=== PATIENT | female | born 1960 | race Hispanic/Latino ===

== ENCOUNTER 2017-10-19 14:06 | Emergency (ER) | payer OTHER ==
[~2017-10-19] VITALS: Ht 149.9 cm; Wt 88.5 kg
[~2017-10-19 14:06] MED LIST: Z.0.METOPROLOL SUCC2
[2017-10-19] MEDS ORDERED: ONDANSETRON HCL INJ 2 MG/ML VIAL IV STA (16:26)
[2017-10-19] MEDS ORDERED: SODIUM CHLORIDE 0.9% 1000ML 1,000 ML IV SCH (16:30)
[2017-10-19] MEDS ORDERED: DIATRIZOATE MEGL/DIATRIZOA SOD 30 ML BTL PO ONE (16:34)
[2017-10-19 16:45] LABS: BASOPHILS % 0.5 % (0.0-1.0); EOSINOPHILS # (AUTO) 0.1 (0.0-0.4); EOSINOPHILS % 1.6 % (0.0-6.0); HEMATOCRIT 44.6 % (34.2-44.1); HEMOGLOBIN 14.5 g/dL (12.0-16.0); LYMPHOCYTES # (AUTO) 2.1 (1.0-3.2); LYMPHOCYTES % 25.4 % (18.0-39.1); MEAN CORPUSCULAR HEMOGLOBIN 27.4 pg (28-32); MEAN CORPUSCULAR HGB CONC 32.5 g/dL (31-35); MEAN CORPUSCULAR VOLUME 84.2 fL (81-99); MONOCYTES # (AUTO) 0.6 (0.2-0.8); MONOCYTES % 7.2 % (4.4-11.3); NEUTROPHILS # (AUTO) 5.4 (2.1-6.9); NEUTROPHILS % 65.1 % (38.7-80.0); PLATELET COUNT 233 x10e3/uL (140-360); RED CELL DISTRIBUTION WIDTH 12.8 % (11.7-14.4)
[2017-10-19] MEDS ORDERED: MORPHINE SULFATE 2 MG/ML SYR IV ONE (16:45)
[2017-10-19 16:48] LABS: BILIRUBIN,URINE NEGATIVE (NEGATIVE); CLARITY,URINE CLEAR (CLEAR); COLOR,URINE YELLOW (YELLOW); KETONES,URINE NEGATIVE (NEGATIVE); LEUKOCYTE ESTERASE ,URINE NEGATIVE (NEGATIVE); NITRITE,URINE NEGATIVE (NEGATIVE); PROTEIN,URINE DIPSTICK NEGATIVE (NEGATIVE); URINE UROBILINOGEN 0.2 mg/dL (0.2 - 1)
[2017-10-19 16:56] LABS: EPITHELIAL CELLS,URINE MODERATE /LPF; MUCUS,URINE MANY (RARE); WBC,URINE (MAN) 0-5 /HPF (0-5)
[2017-10-19 17:01] LABS: ALANINE AMINOTRANSFERASE 17 IU/L (0-55); ALBUMIN 4.1 g/dL (3.5-5.0); ALBUMIN/GLOBULIN RATIO 0.9 (0.8-2.0); ALKALINE PHOSPHATASE 130 IU/L (40-150); ANION GAP 14.8 mmol/L (8-16); BLOOD UREA NITROGEN 19 mg/dL (7-26); BUN/CREATININE RATIO 22 (6-25); CALCIUM 9.4 mg/dL (8.4-10.2); CARBON DIOXIDE 26 mmol/L (22-29); CHLORIDE 105 mmol/L (98-107); CREATININE, SERUM 0.85 mg/dL (0.57-1.11); EST GLOMERULAR FILTRATION RATE > 60 ML/MIN (60-); GLUCOSE 112 mg/dL (74-118); POTASSIUM 3.8 mmol/L (3.5-5.1); SODIUM 142 mmol/L (136-145)
--- NOTE | 2017-10-19 18:35 | Diagnostic Imaging Report ---
EXAM: CT Abdomen and Pelvis WITH contrast INDICATION: \S\LLQ pain, evaluate for diverticular disease vs colitis \[id number] \S\1757 COMPARISON: None. TECHNIQUE: Abdomen and pelvis were scanned utilizing a multidetector helical scanner from the lung base to the pubic symphysis after administration of IV contrast. Coronal and sagittal reformations were obtained. Routine protocol was performed. Scan was performed when during portal venous phase. IV CONTRAST: 100 mL of Isovue-370 ORAL CONTRAST: Gastroview COMPLICATIONS: None RADIATION DOSE: Total DLP: 736.34 mGy*cm Estimated effective dose: (DLP x 0.015 x size factor) mSv CTDIvol has been reviewed. It is below the limits set by the Radiation Protocol Committee (RPC). FINDINGS: LINES and TUBES: None. LOWER THORAX: Unremarkable HEPATOBILIARY: No focal hepatic lesions. No biliary ductal dilation. GALLBLADDER: No radio-opaque stones or sludge. No wall thickening. SPLEEN: No splenomegaly. PANCREAS: No focal masses or ductal dilatation. ADRENALS: No adrenal nodules KIDNEYS/URETERS: Kidneys enhance symmetrically. No hydronephrosis. No renal mass. 1.3 cm left mid to inferior pole exophytic hypodensity with internal attenuation greater than simple fluid, may represent a hemorrhagic/proteinaceous cyst. Additional left renal subcentimeter hypodensities are too small to characterize. No stones. GI TRACT: No abnormal distention, wall thickening, or evidence of bowel obstruction. Colonic diverticulosis without evidence of diverticulitis. Appendix is normal. PELVIC ORGANS/BLADDER: Hysterectomy. Approximately 2.6 cm left ovarian cyst (series 2, image 74). Bladder is unremarkable. LYMPH NODES: No lymphadenopathy. VESSELS: Unremarkable. PERITONEUM / RETROPERITONEUM: No free air or fluid. BONES: T10 vertebral body hemangioma. There are also small lucencies within L1 vertebral body, also probably small hemangiomas. SOFT TISSUES: Small fat-containing umbilical hernia. There is also abdominal wall eventration. Large hiatal hernia. IMPRESSION: 1. Colonic diverticulosis without evidence of diverticulitis. 2. Large hiatal hernia. 3. Exophytic 1.3 cm left renal midpole lesion is probably a hemorrhagic/proteinaceous cyst. Recommend correlation with nonurgent renal ultrasound. Signed by: Dr. Jerman López MD on 10/19/2017 6:32 PM
[2017-10-19 19:45] VITALS: BP 179/98
[2017-10-19] MEDS ORDERED: IOPAMIDOL 370 MG/ML 200 ML INFUS..BTL INJ ONE (20:13)
[2017-10-19] MEDS ORDERED: SODIUM CHLORIDE 0.9% 50ML 50 ML ONE (20:13)
== END 2017-10-19 19:50 | disposition home or self-care (01) ==
LOC: ER 14:06
DX: R10.32 Left lower quadrant pain (principal); I10 Essential (primary) hypertension
CPT/HCPCS: 36415; 74177; 80053; 81001; 83605; 85025; 87086; 99284; J7030; Q9967; J2270

== ENCOUNTER 2019-11-07 11:29 | Emergency (ER) | payer OTHER ==
[~2019-11-07] VITALS: Ht 149.9 cm; Wt 88.5 kg
--- OUTSIDE RECORDS SUMMARY | 2019-11-07 11:31 | XMS REPORT ---
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 Allergies, Adverse Reactions, Alerts This patient has no known allergies or adverse reactions. Medications This patient has no known medications. Results Test Description Test Time Test Comments Text Results Atomic Results Result Comments CT ABDOMEN/PELVIS W [place] [address] Patient Name: MARITZA RUIZ MR #: [id number] : 1960 Age/Sex: 57/F Req #: [id number] Adm Physician: Ordered by: ERIK WEISS MD Report #: [id number] Location: ER Room/Bed: Procedure: [id number] CT/CT ABDOMEN/PELVIS W Exam Date: 10/19/17 Exam Time: 1757 REPORT STATUS: Signed EXAM: CT Abdomen and Pelvis WITH contrast INDICATION: COMPARISON: None. TECHNIQUE: Abdomen and pelvis were scanned utilizing a multidetector helical scanner from the lung base to the pubic symphysis after administration of IV contrast. Coronal and sagittal reformations were obtained. Routine protocol was performed. Scan was performed when during portal venous phase. IV CONTRAST: 100 mL of Isovue-370 ORAL CONTRAST: Gastroview COMPLICATIONS: None RADIATION DOSE: Total DLP: 736.34 mGy*cm Estimated effective dose: (DLP x 0.015 x size factor) mSv CTDIvol has been reviewed. It is below the limits set by the Radiation Protocol Committee (RPC). FINDINGS: LINES and TUBES: None. LOWER THORAX: Unremarkable HEPATOBILIARY: No focal hepatic lesions. No biliary ductal dilation. GALLBLADDER: No radio-opaque stones or sludge. No wall thickening. SPLEEN: No splenomegaly. PANCREAS: No focal masses or ductal dilatation. ADRENALS: No adrenal nodules KIDNEYS/URETERS: Kidneys enhance symmetrically. No hydronephrosis. No renal mass. 1.3 cm left mid to inferior pole exophytic hypodensity with internal attenuation greater than simple fluid, may represent a hemorrhagic/proteinaceous cyst. Additional left renal subcentimeter hypodensities are too small to characterize. No stones. GI TRACT: No abnormal distention, wall thickening, or evidence of bowel obstruction. Colonic diverticulosis without evidence of diverticulitis. Appendix is normal. PELVIC ORGANS/BLADDER: Hysterectomy. Approximately 2.6 cm left ovarian cyst (series 2, image 74). Bladder is unremarkable. LYMPH NODES: No lymphadenopathy. VESSELS: Unremarkable. PERITONEUM / RETROPERITONEUM: No free air or fluid. BONES: T10 vertebral body hemangioma. There are also small lucencies within L1 vertebral body, also probably small hemangiomas. SOFT TISSUES: Small fat-containing umbilical hernia. There is also abdominal wall eventration. Large hiatal hernia. IMPRESSION: 1. Colonic diverticulosis without evidence of diverticulitis. 2. Large hiatal hernia. 3. Exophytic 1.3 cm left renal midpole lesion is probably a hemorrhagic/proteinaceous cyst. Recommend correlation with nonurgent renal ultrasound. Signed by: Dr. Jerman López MD on 10/19/2017 6:32 PM Dictated By: JERMAN LÓPEZ MD 31 Transcribed By: MARYAM on 10/19/171831 COPY TO: ERIK WEISS MD
[2019-11-07] MEDS ORDERED: SODIUM CHLORIDE 0.9% 1000ML 1,000 ML IV STA (12:16)
[2019-11-07 12:26] LABS: BASOPHILS % 0.5 % (0.0-1.0); EOSINOPHILS # (AUTO) 0.1 (0.0-0.4); EOSINOPHILS % 1.2 % (0.0-6.0); HEMATOCRIT 45.1 % (34.2-44.1); HEMOGLOBIN 14.5 g/dL (12.0-16.0); LYMPHOCYTES # (AUTO) 1.6 (1.0-3.2); LYMPHOCYTES % 24.8 % (18.0-39.1); MEAN CORPUSCULAR HEMOGLOBIN 26.6 pg (28-32); MEAN CORPUSCULAR HGB CONC 32.2 g/dL (31-35); MEAN CORPUSCULAR VOLUME 82.8 fL (81-99); MONOCYTES # (AUTO) 0.5 (0.2-0.8); MONOCYTES % 7.3 % (4.4-11.3); NEUTROPHILS # (AUTO) 4.4 (2.1-6.9); PLATELET COUNT 249 x10e3/uL (140-360); RED BLOOD COUNT 5.45 x10e6/uL (3.6-5.1); RED CELL DISTRIBUTION WIDTH 13.2 % (11.7-14.4)
[2019-11-07 12:33] LABS: CLARITY,URINE CLEAR (CLEAR); COLOR,URINE YELLOW (YELLOW); KETONES,URINE NEGATIVE (NEGATIVE); LEUKOCYTE ESTERASE ,URINE NEGATIVE (NEGATIVE); NITRITE,URINE NEGATIVE (NEGATIVE); PROTEIN,URINE DIPSTICK NEGATIVE (NEGATIVE)
[2019-11-07 12:34] LABS: AMPHETAMINES SCREEN,URINE NEGATIVE (NEGATIVE); BENZODIAZEPINES SCREEN,URINE NEGATIVE (NEGATIVE); BILIRUBIN,URINE NEGATIVE (NEGATIVE); PHENCYCLIDINE SCREEN,URINE NEGATIVE (NEGATIVE); URINE UROBILINOGEN 0.2 mg/dL (0.2 - 1)
[2019-11-07 12:43] LABS: RBC,URINE 0-5 /HPF (0-5)
[2019-11-07 12:44] LABS: BACTERIA,URINE RARE /HPF; EPITHELIAL CELLS,URINE RARE /LPF
[2019-11-07 12:56] LABS: ALANINE AMINOTRANSFERASE 15 IU/L (0-55); ALBUMIN 4.1 g/dL (3.5-5.0); ALBUMIN/GLOBULIN RATIO 1.1 (0.8-2.0); ALKALINE PHOSPHATASE 109 IU/L (40-150); ANION GAP 14.9 mmol/L (8-16); BLOOD UREA NITROGEN 15 mg/dL (7-26); BUN/CREATININE RATIO 18 (6-25); CALCIUM 9.3 mg/dL (8.4-10.2); CARBON DIOXIDE 26 mmol/L (22-29); CHLORIDE 105 mmol/L (98-107); CREATINE KINASE 41 IU/L (29-168); CREATININE, SERUM 0.82 mg/dL (0.57-1.11); EST GLOMERULAR FILTRATION RATE > 60 ML/MIN (60-); GLUCOSE 97 mg/dL (74-118); POTASSIUM 3.9 mmol/L (3.5-5.1); SODIUM 142 mmol/L (136-145)
--- NOTE | 2019-11-07 12:56 | Diagnostic Imaging Report ---
EXAM: CHEST 2 VIEWS DATE: 11/07/2019 12:02 PM INDICATION: Syncope COMPARISON: CT abdomen/pelvis from 10/19/2017 FINDINGS: The trachea is midline. The lungs are symmetrically expanded without evidence for large focal consolidation, pneumothorax, or significant pleural effusion. There is a retrocardiac air-fluid level compatible with the known large hiatal hernia better evaluated on the prior CT abdomen/pelvis examination. The cardiomediastinal silhouette and pulmonary vasculature are within normal limits. No acute osseous abnormality is identified. The surrounding soft tissues are unremarkable. IMPRESSION: No acute cardiopulmonary process identified. Hiatal hernia. Signed by: Dr. Giancarlo Ashley MD on 11/07/2019 12:54 PM
--- NOTE | 2019-11-07 12:59 | Diagnostic Imaging Report ---
Exam: Head CT without contrast History: Syncope Comparison studies: None. Prior head CT of 07/28/2011 is unavailable on the PACS for comparison at the time of dictation. Technique: Axial images were obtained from the skull base to the vertex. Coronal and sagittal images reconstructed from the axial data. Dose modulation, iterative reconstruction, and/or weight based adjustment of the mA/kV was utilized to reduce the radiation dose to as low as reasonably achievable. Radiation dose: Total DLP: 832.18 mGy*cm. Estimated effective dose: DLP x 0.015 Intravenous contrast: None Findings: Scalp: No abnormalities. Bones: No fractures, blastic or lytic lesions. Brain sulci: Appropriate for age. Ventricles: Normal in size and configuration. No hydrocephalus. Extra-axial spaces: No masses, no fluid collection. Parenchyma: No abnormal densities. No masses, hemorrhage, acute or chronic vascular insults. Sellar/suprasellar region: No abnormalities. Craniocervical junction: Patent foramen magnum. No Chiari one malformation. Included paranasal sinuses: Clear. Middle ear mastoid cavities: There bilaterally. Pneumatized left petrous apex, a normal anatomical variant. IMPRESSION: No intracranial abnormalities. Signed by: Dr. Filiberto Tucker M.D. on 11/07/2019 12:56 PM
== END 2019-11-07 14:33 | disposition home or self-care (01) ==
LOC: ER 11:29
DX: R55 Syncope and collapse (principal)
CPT/HCPCS: 36415; 70450; 71046; 80053; 80307; 81001; 82550; 82553; 84484; 85025; 93005; 99284

== ENCOUNTER 2019-12-29 16:09 | Inpatient (IN) | payer OTHER ==
[~2019-12-29] VITALS: Ht 149.9 cm; Wt 86.3 kg
[~2019-12-29 16:09] MED LIST changes: -Z.0.METOPROLOL SUCC2; +Z.0.METOPROLOL SUCC2 PO
[2019-12-29] MEDS ORDERED: ACETAMINOPHEN 325 MG TAB PO NR (16:15)
[2019-12-29] MEDS ORDERED: ASPIRIN 81 MG CHEW TAB PO ONE ×2 (16:15→18:00)
[2019-12-29 16:43] LABS: BASOPHILS % 0.3 % (0.0-1.0); EOSINOPHILS # (AUTO) 0.1 (0.0-0.4); EOSINOPHILS % 0.4 % (0.0-6.0); HEMATOCRIT 40.3 % (34.2-44.1); HEMOGLOBIN 13.2 g/dL (12.0-16.0); LYMPHOCYTES # (AUTO) 1.4 (1.0-3.2); LYMPHOCYTES % 11.5 % (18.0-39.1); MEAN CORPUSCULAR HEMOGLOBIN 27.1 pg (28-32); MEAN CORPUSCULAR HGB CONC 32.8 g/dL (31-35); MEAN CORPUSCULAR VOLUME 82.8 fL (81-99); MONOCYTES # (AUTO) 1.1 (0.2-0.8); MONOCYTES % 8.7 % (4.4-11.3); NEUTROPHILS # (AUTO) 9.5 (2.1-6.9); NEUTROPHILS % 78.7 % (38.7-80.0); PLATELET COUNT 269 x10e3/uL (140-360); RED BLOOD COUNT 4.87 x10e6/uL (3.6-5.1); RED CELL DISTRIBUTION WIDTH 12.3 % (11.7-14.4)
[2019-12-29] MEDS: PIPER-TAZ 3.375 GM 50 ML IV SCH (16:45)
[2019-12-29 16:51] LABS: CLARITY,URINE SL CLOUDY (CLEAR); COLOR,URINE YELLOW (YELLOW); LEUKOCYTE ESTERASE ,URINE NEGATIVE (NEGATIVE); NITRITE,URINE NEGATIVE (NEGATIVE); PROTEIN,URINE DIPSTICK NEGATIVE (NEGATIVE)
[2019-12-29 16:55] LABS: KETONES,URINE NEGATIVE (NEGATIVE)
[2019-12-29 16:56] LABS: BILIRUBIN,URINE NEGATIVE (NEGATIVE); URINE UROBILINOGEN 1 mg/dL (0.2 - 1)
[2019-12-29 17:01] LABS: BACTERIA,URINE FEW /HPF
[2019-12-29 17:02] LABS: EPITHELIAL CELLS,URINE FEW /LPF
[2019-12-29 17:06] LABS: ALBUMIN 3.2 g/dL (3.5-5.0); ALBUMIN/GLOBULIN RATIO 0.7 (0.8-2.0); ANION GAP 11.8 mmol/L (8-16); CALCIUM 9.2 mg/dL (8.4-10.2); CREATININE, SERUM 1.06 mg/dL (0.57-1.11); POTASSIUM 3.8 mmol/L (3.5-5.1)
[2019-12-29 17:10] LABS: INFLUENZAE A&B ANTIGEN (RAPID) NEGATIVE (NEGATIVE); STREPTOCOCCUS GRP A ANTIGEN NEGATIVE (NEGATIVE)
--- NOTE | 2019-12-29 17:34 | Diagnostic Imaging Report ---
EXAMINATION: CHEST SINGLE (PORTABLE) INDICATION: Fever, shortness of breath. COMPARISON: Chest radiograph 11/07/2019. FINDINGS: TUBES and LINES: None. LUNGS: Lungs are well inflated. Patchy left retrocardiac opacity. No evidence of pulmonary edema. PLEURA: No pleural effusion or pneumothorax. HEART AND MEDIASTINUM: The cardiomediastinal silhouette is unchanged. Hiatal hernia. BONES AND SOFT TISSUES: No acute osseous lesion. Soft tissues are unremarkable. UPPER ABDOMEN: No free air under the diaphragm. IMPRESSION: Patchy left retrocardiac opacity, which may represent atelectasis or infection in the appropriate clinical setting. Signed by: Dr. Minesh Cohen MD on 12/29/2019 5:30 PM
--- NOTE | 2019-12-29 17:45 | NUR ---
Spoke with lab regarding COVID testing for patient. Was told that test kit is in lab directors office and that they would have to call security in order to unlock door. Will get test from lab once available.
[2019-12-29] MEDS ORDERED: MORPHINE SULFATE 2 MG/ML SYR 1ML IV PRN (18:00)
[2019-12-29] MEDS: ONDANSETRON HCL INJ 2MG/ML 2ML 2 MG/ML VIAL IV PRN (18:10)
--- NOTE | 2019-12-29 18:15 | NUR ---
specimen obtained via nasal passage for COVID-19 testing.
[2019-12-29] MEDS: MORPHINE SULFATE INJ 4 MG/ML INJ 1ML IV PRN (18:48)
--- NOTE | 2019-12-29 19:01 | NUR ---
report given to Miguelito ROMO
--- NOTE | 2019-12-29 21:00 | NUR ---
pt c/o pain to llq p eating chicken nuggets. pt reports trace blood in diarrhea. pt states that having pain x 1 week and unable to tolerate food at home. pt states that did not tell md or triage nurse about abdominal pain. dr wayne called.
[2019-12-29] MEDS ORDERED: DIATRIZOATE MEGL/DIATRIZOA SOD 30 ML BTL PO ONE (21:25)
[2019-12-29] MEDS ORDERED: SODIUM CHLORIDE 0.9% 1000ML 500 ML IV ONE (21:30)
[2019-12-29] MEDS ORDERED: HYDROCODONE/APAP 5MG-325MG TAB PO PRN (21:30)
[2019-12-29] MEDS ORDERED: SODIUM CHLORIDE 0.9% 500ML 500 ML ONE (21:35)
[2019-12-29] MEDS: SODIUM CHLORIDE 0.9% 1000ML 1,000 ML IV SCH (21:45)
[2019-12-29] MEDS: ACETAMINOPHEN 325 MG TAB PO PRN (23:45)
--- NOTE | 2019-12-29 23:53 | Diagnostic Imaging Report ---
EXAM: CT Abdomen and Pelvis WITH contrast INDICATION: Diarrhea for one week , left lower quadrant pain COMPARISON: None. TECHNIQUE: Abdomen and pelvis were scanned utilizing a multidetector helical scanner from the lung base to the pubic symphysis after administration of IV contrast. Coronal and sagittal reformations were obtained. Routine protocol was performed. Scan was performed when during portal venous phase. IV CONTRAST: 100 mL of Isovue 370 ORAL CONTRAST: Gastroview COMPLICATIONS: None RADIATION DOSE: Total DLP: 745 mGy*cm Estimated effective dose: (DLP x 0.015 x size factor) mSv CTDIvol has been reviewed. It is below the limits set by the Radiation Protocol Committee (RPC). Dose modulation, iterative reconstruction, and/or weight based adjustment of the mA/kV was utilized to reduce the radiation dose to as low as reasonably achievable. FINDINGS: LINES and TUBES: None. LOWER THORAX: Unremarkable HEPATOBILIARY: No focal hepatic lesions. No biliary ductal dilation. GALLBLADDER: No radio-opaque stones or sludge. No wall thickening. SPLEEN: No splenomegaly. PANCREAS: No focal masses or ductal dilatation. ADRENALS: No adrenal nodules KIDNEYS/URETERS: Kidneys enhance symmetrically. No hydronephrosis. No solid mass lesions. A 1.4 cm simple exophytic left renal cyst. No stones. GI TRACT: Large sliding gastric mari hernia, the entire stomach is herniated into the lower posterior mediastinum. Sigmoid wall thickening and perisigmoid fat stranding. A few small defined hypodensities within the inflamed sigmoid colon wall, largest measures 2.1 cm. Extensive colonic diverticulosis, worst in the sigmoid colon. Ingested contrast traversed the small bowel with contrast in the colon. No abnormal distention or evidence of bowel obstruction. Appendix is normal. PELVIC ORGANS/BLADDER: A 2 cm fluid dense focus in the left ovary with mild surrounding inflammatory changes. Hysterectomy. Normal bladder and right adnexa. LYMPH NODES: No lymphadenopathy. VESSELS: Unremarkable. PERITONEUM / RETROPERITONEUM: Trace fluid in the pelvis. No free air. BONES: T10 vertebral body hemangioma. Degenerative changes in the spine. . SOFT TISSUES: Rectus status stasis with fat-containing ventral hernia. IMPRESSION: 1. Acute sigmoid diverticulitis with small intramural abscesses, largest measures 2.1 cm. Also, a 2 cm focus of fluid in the left ovary is likely a physiologic follicle although there is inflammatory changes around the ovary contiguous with the perisigmoid inflammation. Recommend pelvic ultrasound for further evaluation. 2. Large sliding gastric mari hernia, the entire stomach is herniated into the lower posterior mediastinum. Signed by: Andrew Bro DO on 12/29/2019 11:50 PM
[2019-12-30] VITALS (11 sets, daily range): BP systolic 108–137; BP diastolic 50–78
--- NOTE | 2019-12-30 00:15 | NUR ---
ct abd report called to dr wayne. new orders rc'd.
[2019-12-30] MEDS: PIPER-TAZ 3.375 GM 50 ML IV SCH ×4 (00:30→17:34)
[2019-12-30] MEDS ORDERED: SODIUM CHLORIDE 0.9% 50ML 50 ML ONE (01:00)
--- NOTE | 2019-12-30 01:00 | NUR ---
Patient arrived to the floor as a new admit from ED with diagnosis of Pneumonia and chest pain. Pt alert and oriented x3. Ambulatory in room prn. On IVF (NS at 75ml/hr), tele monitor and scheduled IV antibiotic treatment. Pt denies any discomfort at this time. Pt educated to call for assistance prn. Call zheng within reach. Will monitor pt closely.
[2019-12-30] MEDS ORDERED: IOPAMIDOL 370 MG/ML 200 ML INFUS..BTL INJ ONE (01:01)
[2019-12-30] MEDS ORDERED: SEROQUEL25 MG PO (02:39)
[2019-12-30] MEDS: MORPHINE SULFATE INJ 4 MG/ML INJ 1ML IV PRN ×3 (04:15→19:24)
[2019-12-30] MEDS: ONDANSETRON HCL INJ 2MG/ML 2ML 2 MG/ML VIAL IV PRN (04:15)
--- NOTE | 2019-12-30 06:14 | NUR ---
Consult to Dr. Weber called and answered by Dr. Patino.
--- NOTE | 2019-12-30 06:16 | NUR ---
Consult called for Dr. Salazar spoke with answering service
--- NOTE | 2019-12-30 07:00 | NUR ---
BEDSIDE SHIFT REPORT FROM FASHION CONSULTANT SALES NURSE. PT DENIES NEEDS AT THIS TIME.
--- NOTE | 2019-12-30 08:33 | Consultation ---
DATE OF CONSULTATION: 12/30/2019 HISTORY OF PRESENT ILLNESS: The patient is a 59-year-old female presents with complaints of lower abdominal pain. She says she has been having pain for 10 days and she thought it would get better, but it did not get better. She says pain is worse when she urinates. She has not had similar pains in the past. She came to the emergency room, was evaluated CT scan of the abdomen and pelvis. This revealed a large hiatal hernia, but also sigmoid diverticulitis with possibly pericolonic abscesses. The patient has not had any fever and she has been having bowel movements, although she says they are loose. PAST MEDICAL HISTORY: Significant for hypertension for which she takes metoprolol, also the only other medication is Seroquel. PAST SURGICAL HISTORY: Previous surgery was hysterectomy. ALLERGIES: SHE HAS NO KNOWN ALLERGIES. FAMILY HISTORY: Noncontributory. SOCIAL HISTORY: The patient does not smoke cigarettes or drink alcohol. REVIEW OF SYSTEMS: As stated above, otherwise was negative. She has not had any fever or weight loss. PHYSICAL EXAMINATION: GENERAL: The patient is awake and alert. VITAL SIGNS: Low-grade fever, this time with temperature 101.3, yesterday, heart rate is in the 90s. HEENT: Sclerae is nonicteric. NECK: Supple. No masses. LUNGS: Equal breath sounds, are clear bilaterally. CARDIAC: Regular rate and rhythm with no murmur. ABDOMEN: Tender in the lower abdomen with localized signs of peritonitis. There is no mass. No organomegaly. EXTREMITIES: Have no edema. Pulses are palpable. NEUROLOGIC: Intact. LABORATORY TESTS: White blood cell count 70079, hemoglobin and hematocrit are normal. Chemistries were essentially normal. ASSESSMENT: A 59-year-old female with acute sigmoid diverticulitis. She has fairly extensive disease on the CT scan, but so localized. At this point recommend continuing the patient on IV antibiotics, IV fluids. N.p.o. for now. Hopefully, she will resolve without requiring surgery, however, if her symptoms persist or worsen, then she may require surgical intervention. This was explained to the patient. Thank you for asking me to see Ms. Jackson. MD SANTANA Muhammad/RITU /[id number]
[2019-12-30] MEDS: METOPROLOL SUCCINATE 25 MG TAB XL PO SCH (08:54)
[2019-12-30] MEDS: ASPIRIN 81 MG ENTERIC COATED PO SCH (08:54)
[2019-12-30] MEDS: SODIUM CHLORIDE 0.9% 1000ML 1,000 ML IV SCH ×2 (10:50→14:58)
[2019-12-30 12:55] LABS: BASOPHILS % 0.4 % (0.0-1.0); EOSINOPHILS # (AUTO) 0.1 (0.0-0.4); EOSINOPHILS % 0.9 % (0.0-6.0); HEMATOCRIT 36.3 % (34.2-44.1); HEMOGLOBIN 11.7 g/dL (12.0-16.0); LYMPHOCYTES # (AUTO) 1.2 (1.0-3.2); MEAN CORPUSCULAR HEMOGLOBIN 27.2 pg (28-32); MEAN CORPUSCULAR HGB CONC 32.2 g/dL (31-35); MEAN CORPUSCULAR VOLUME 84.4 fL (81-99); MONOCYTES # (AUTO) 0.9 (0.2-0.8); MONOCYTES % 8.3 % (4.4-11.3); NEUTROPHILS # (AUTO) 8.5 (2.1-6.9); NEUTROPHILS % 79.1 % (38.7-80.0); PLATELET COUNT 196 x10e3/uL (140-360); RED CELL DISTRIBUTION WIDTH 12.6 % (11.7-14.4)
[2019-12-30 13:19] LABS: CREATINE KINASE MB 1.1 ng/mL (0-5.0)
[2019-12-30 13:40] LABS: ALANINE AMINOTRANSFERASE 23 IU/L (0-55); ALBUMIN 2.8 g/dL (3.5-5.0); ALBUMIN/GLOBULIN RATIO 0.7 (0.8-2.0); ALKALINE PHOSPHATASE 118 IU/L (40-150); ANION GAP 11.3 mmol/L (8-16); BLOOD UREA NITROGEN 12 mg/dL (7-26); BUN/CREATININE RATIO 14 (6-25); CALCIUM 8.7 mg/dL (8.4-10.2); CARBON DIOXIDE 27 mmol/L (22-29); CHLORIDE 107 mmol/L (98-107); CREATININE, SERUM 0.83 mg/dL (0.57-1.11); EST GLOMERULAR FILTRATION RATE > 60 ML/MIN (60-); GLUCOSE 86 mg/dL (74-118); POTASSIUM 4.3 mmol/L (3.5-5.1); SODIUM 141 mmol/L (136-145)
[2019-12-30] MEDS ORDERED: BENZONATATE 100 MG CAP PO PRN (14:30)
--- NOTE | 2019-12-30 15:14 | Consultation ---
DATE OF CONSULTATION: SUBJECTIVE: The patient has fever, chills, UTI. This patient, who is a 59-year-old female, comes with abdominal pain on the left lower quadrant for a week, but it has been getting progressively worse over the last couple of days. There was some urgency and frequency. The patient does have history of hypertension, on metoprolol. The patient comes in with abdominal pain. There is no nausea or no vomiting. PAST SURGICAL HISTORY: Hysterectomy. PHYSICAL EXAMINATION: GENERAL: She is currently alert, oriented, in no acute distress. VITALS: Stable, currently afebrile. HEENT: She is not icteric. NECK: Supple. CHEST: Clear. ABDOMEN: Soft. LABORATORY STUDIES: When she first came, she had a white count of 12.09, came down to 10, hemoglobin 11. Her sodium 141, potassium 4.3 with creatinine 0.6. She was checked for COVID-19 and influenza A and B, all came back negative. She had abdominal CAT scan, which was acute diverticulitis with small abscess. IMPRESSION: Intraabdominal abscess, diverticulitis, currently on Zosyn. Continue IV antibiotic, n.p.o., reassess in the morning. Surgery was consulted. Other medical problem as above. We will follow with you. MD KOBE Rose/RITU /[id number]
[2019-12-30] MEDS: ENOXAPARIN SOD INJ 40 MG/0.4 ML SYR SC SCH (17:34)
[2019-12-30 18:10] LABS: CHOL/HDL RATIO 3.2 (3.0-3.6)
--- NOTE | 2019-12-30 18:25 | Consultation ---
DATE OF CONSULTATION: 12/30/2019 Cardiology consultation. REASON FOR CONSULTATION: Chest pain. HISTORY OF PRESENT ILLNESS: This is a 59-year-old woman with history of hypertension, who presents with abdominal pain and chest pain. The patient reports she began feeling poorly for the last week and half. She describes abdominal pain over this period time with inability to tolerate p.o. intake. She denied any nausea or vomiting. Yesterday, she developed fever and chills as well as stabbing chest pain 5/10 in severity, associated with shortness of breath. The pain did not radiate and lasted approximately an hour. Due to her symptoms, she presented to the ER for further evaluation. Imaging in the ER revealed acute sigmoid diverticulitis with small intramural abscesses, largest measuring 2.1 cm. Also, a 2 cm focus of fluid in the left ovary, likely a physiologic follicle, there is inflammatory changes around the ovary, contiguous with the esperanza-sigmoid inflammation. Recommend pelvic ultrasound for further evaluation. Large sliding gastric hiatal hernia. The entire stomach is herniated into the lower posterior mediastinum. Due to these findings, the patient was admitted for further evaluation. REVIEW OF SYSTEMS: Negative except as per HPI. PAST MEDICAL HISTORY: Hypertension. PAST SURGICAL HISTORY: Hysterectomy and section. ALLERGIES: PLEASE SEE EMR. MEDICATIONS: Please see medication list. SOCIAL HISTORY: Denies tobacco, alcohol, or illicit drugs. FAMILY HISTORY: Denies. PHYSICAL EXAMINATION: VITAL SIGNS: Temperature 100.5, pulse 85, respiratory rate 16, blood pressure 108/50, oxygen saturation 94% on room air. GENERAL: Well-developed and well-nourished woman, in no acute distress. HEENT: Normocephalic and atraumatic. Pupils equal. No scleral icterus. NECK: Supple, no thyroid or cervical lymphadenopathy. No carotid bruits. LUNGS: Clear to auscultation bilaterally. No wheezes or crackles. HEART: Normal rate, regular rhythm. No murmur. Normal S1, S2. ABDOMEN: Soft, mildly tender to palpation. Nondistended. EXTREMITIES: No edema. NEUROLOGIC: Nonfocal exam. LABORATORY DATA: WBC 10.73, hemoglobin 11.7, hematocrit 36.3, platelets 196. Sodium 141, potassium 4.3, chloride 107, CO2 of 27, BUN 12, creatinine 0.83. EKG, normal sinus rhythm and normal ECG. IMPRESSION: 1. Chest pain. 2. Acute diverticulitis with intraabdominal abscess. 3. Hypertension. RECOMMENDATIONS: No evidence of myocardial infarction on serial cardiac biomarkers. Echocardiogram demonstrated preserved LVEF. Given patient's diverticulitis, I recommend medical management at this time including aspirin. Check fasting lipid panel. Continue current cardiac medications otherwise. Recommend ischemic evaluation as an outpatient once diverticulitis has resolved. Note, surgery consultation. If the patient requires surgical intervention, we will proceed with chemical stress test prior. Thank you for this consult. We will continue to follow. Leigh Ann Wolfe MD ABS/MODL /[id number]
--- NOTE | 2019-12-30 19:25 | History and Physical ---
CHIEF COMPLAINT: Abdominal pain, left lower quadrant and fever. HISTORY OF PRESENT ILLNESS: A 59-year-old female seems to have a history of diverticulosis in the past, was seen by GI specialist several years ago for colonoscopy, history of hypertension, present to the ED with complaints of left lower quadrant abdominal pain and fever ongoing for the last 7 to 10 days. The patient reports she was having episodic pain on and off and has been at home since that the abdominal pain occurred. Denies any myalgias, cough, congestion. Had some episodic fever that she reports ongoing for the last 10 days. She also reports decreased oral intake. No nausea, no vomiting. Endorses some diarrhea. The patient initially thought that she was improving up until yesterday when she ate some lunch and noticed to have severe abdominal pain in the left lower quadrant and came into the ED for further evaluation. Yesterday, she also described having some chest pain and this was what prompted her to come to the hospital. She reports it was more substernal in nature, does not radiate to the left shoulder or arm. Vital signs stable during my evaluation. REVIEW OF SYSTEMS: 1. Positive substernal chest pain. 2. Left lower quadrant abdominal pain, decreased oral intake. The rest of 14-point review of systems are reviewed with the patient and are negative. ALLERGIES: NO KNOWN DRUG ALLERGIES. MEDICATIONS: Metoprolol succinate 25 mg daily. PAST MEDICAL HISTORY: As mentioned, history of diverticulosis, moderate obesity. PAST SURGICAL HISTORY: Colonoscopy back in 2015 for underlying diverticulosis. FAMILY HISTORY: Hypertension and diabetes. SOCIAL HISTORY: No drugs, no alcohol. Does not smoke. . PHYSICAL EXAMINATION: VITAL SIGNS: Temperature was 100.5 recorded, T-max 101.3, pulse 85, respiratory rate 16, blood pressure is 100/54, pulse ox 94% on room air. GENERAL: Not in acute distress. Alert and oriented x3. Cooperative on examination. HEENT: Head; normocephalic, atraumatic. Eyes; pupils are equal, round and reactive to light bilaterally. Extraocular movements intact bilaterally. NECK: Supple. Good range of motion. Throat, no evidence of erythema or exudates in the posterior pharynx. Has poor dentition. PULMONARY: Clear to auscultation bilaterally. No wheezing, rales, or rhonchi. No crackles appreciated. CARDIOVASCULAR: Positive S1 and S2. No murmurs, rubs, or gallops appreciated. ABDOMEN: Tenderness to palpation in left lower quadrant noted. No rebound. Bowel sounds present. MUSCULOSKELETAL: Strength is 5/5 throughout. No evidence of any muscle deficits on examination. No weakness appreciated. NEUROLOGIC: Cranial nerves 2 thorough 12 grossly intact. No evidence of any neurological deficits on exam. SKIN: Intact. Warm to touch. Good cap refill. PSYCHIATRIC: Normal affect and mood. EXTREMITIES: No edema. Good range of motion throughout. LABORATORY DATA: White count 10.7, on admission it was 12; hemoglobin 11.7, hematocrit 36, platelets 196. Chemistry, sodium 141, potassium 4.3, chloride 107, bicarb 27, , creatinine is 0.3, glucose 86, lactic acid 0.6, calcium 8.7. LFTs within normal range. CK was 21. Troponins were all negative. Total protein 6.7, albumin is 2.8. Lipase was 25. Urinalysis, RBCs 6-10, WBCs 6-10, 2+ blood. . Group A strep negative. MICROBIOLOGY: Blood cultures pending. Urine cultures, no growth today. IMAGING STUDIES: Chest x-ray, patchy left retrocardiac opacity, which may be atelectasis or infection. CT abdomen and pelvis, acute sigmoid diverticulitis with small intramural abscesses . IMPRESSION: 1. Acute diverticulitis with . 2. Left lower quadrant abdominal pain secondary to #1. 3. Chest pain likely atypical in nature. 4. Hypotension. PLAN: At this time, CT imaging noted to be acute diverticulitis. The patient is on IV Zosyn. General surgery, ID and GI . Get repeat labs in the morning. Put on Lovenox for DVT prophylaxis. Encourage ambulation. Consultants involved, General Surgery, GI, ID, and Cardiology. In relation to her chest pain, Cardiology has been consulted from the ER. atypical in nature. MD AIDA Murillo/RITU Schuster: 12/30/2019 14:27:11 /[id number]
--- NOTE | 2019-12-30 19:46 | NUR ---
RECEIVED REPORT FROM DAY NURSE. PATIENT IS RESTING COMFORTABLY IN THE BED. BED IS IN THE LOWEST POSITION AND CALL LIGHT IS WITHIN REACH. WILL CONTINUE TO MONITOR PATIENT.
[2019-12-31] VITALS (7 sets, daily range): BP systolic 131–143; BP diastolic 52–85
[2019-12-31] MEDS: PIPER-TAZ 3.375 GM 50 ML IV SCH ×2 (00:04→05:34)
[2019-12-31 00:34] LABS: BASOPHILS % 0.3 % (0.0-1.0); EOSINOPHILS # (AUTO) 0.1 (0.0-0.4); EOSINOPHILS % 0.7 % (0.0-6.0); HEMATOCRIT 38.1 % (34.2-44.1); HEMOGLOBIN 12.2 g/dL (12.0-16.0); LYMPHOCYTES # (AUTO) 1.3 (1.0-3.2); LYMPHOCYTES % 12.1 % (18.0-39.1); MEAN CORPUSCULAR HEMOGLOBIN 27.1 pg (28-32); MEAN CORPUSCULAR VOLUME 84.5 fL (81-99); MONOCYTES # (AUTO) 0.7 (0.2-0.8); MONOCYTES % 6.8 % (4.4-11.3); NEUTROPHILS # (AUTO) 8.5 (2.1-6.9); NEUTROPHILS % 79.6 % (38.7-80.0); PLATELET COUNT 248 x10e3/uL (140-360); RED BLOOD COUNT 4.51 x10e6/uL (3.6-5.1); RED CELL DISTRIBUTION WIDTH 12.3 % (11.7-14.4)
[2019-12-31 00:45] LABS: ANION GAP 14.7 mmol/L (8-16); BLOOD UREA NITROGEN 14 mg/dL (7-26); BUN/CREATININE RATIO 19 (6-25); CALCIUM 8.7 mg/dL (8.4-10.2); CARBON DIOXIDE 22 mmol/L (22-29); CHLORIDE 107 mmol/L (98-107); CREATININE, SERUM 0.73 mg/dL (0.57-1.11); EST GLOMERULAR FILTRATION RATE > 60 ML/MIN (60-); GLUCOSE 67 mg/dL (74-118); POTASSIUM 3.7 mmol/L (3.5-5.1); SODIUM 140 mmol/L (136-145)
[2019-12-31 00:48] LABS: FERRITIN 176.25 ng/mL (4.63-204.00)
[2019-12-31] MEDS: SODIUM CHLORIDE 0.9% 1000ML 1,000 ML IV SCH (05:34)
[2019-12-31] MEDS: ONDANSETRON HCL INJ 2MG/ML 2ML 2 MG/ML VIAL IV PRN (05:52)
--- NOTE | 2019-12-31 06:28 | NUR ---
PATIENT IS RESTING IN BED. BED IS IN LOWEST POSITION AND CALL LIGHT IS WITHIN REACH.
[2019-12-31] MEDS: MORPHINE SULFATE INJ 4 MG/ML INJ 1ML IV PRN (07:16)
--- NOTE | 2019-12-31 07:22 | NUR ---
PATIENT C/O ABDOMINAL PAIN AND WAS MEDICATED. IV FLUID INFUSING ORDERED. BED IN LOWER POSITION, CALL LIGHT AT REACH.
[2019-12-31] MEDS: ASPIRIN 81 MG ENTERIC COATED PO SCH (09:23)
[2019-12-31] MEDS: METOPROLOL SUCCINATE 25 MG TAB XL PO SCH (09:23)
--- NOTE | 2019-12-31 10:57 | Progress Note ---
DATE: SUBJECTIVE: Ms. Jackson is a pleasant 59-year-old female, who was admitted with abdominal pain, found to have diverticulitis, acute sigmoid with small intramural abscesses. REVIEW OF SYSTEMS: Feels better, still has left lower quadrant abdominal discomfort, but she says it is better. She started having bowel movement, which is diarrhea and no fever. No chills. No chest pain or shortness of breath. No dysuria. PHYSICAL EXAMINATION: VITAL SIGNS: Temperature 98.2, pulse 91, respirations 20, and blood pressure 131/85. GENERAL: Alert and oriented, comfortable in bed. CV: S1, S2. CHEST: Equal expansion. Clear to auscultation. No acute distress. ABDOMEN: Obese, soft, not tender, but she has some discomfort in left lower quadrant of abdomen. EXTREMITIES: Moves all. No significant edema. MEDICATION LIST: As far as Infectious Disease point of view patient is on Zosyn. LABORATORY STUDIES: White blood cells 10.64, improved from 12.09, hemoglobin 12.2, platelet 248,000. Sodium 140, potassium 3.7, creatinine 0.73. SEROLOGY: COVID test was negative on 12/29/2019. Influenza A and B and group A strep screen negative on 12/29/2019. MICROBIOLOGY: Blood culture on 12/28 and throat culture on 12/28 negative so far. RADIOLOGY STUDIES: CT of the abdomen and pelvis suggested acute sigmoid diverticulitis with small intramural abscesses, also large sliding gastric hiatal hernia with entire stomach is herniated anterior lower for surgery at mediastinum. ASSESSMENT AND PLAN: 1. Acute sigmoid diverticulitis. 2. Small intramural abscesses. 3. Sliding gastric hiatal hernia. 4. Herniated stomach. 5. Diarrhea started. 6. Hypertension. 7. Obesity. The patient is seen by General Surgery. The patient is started on clear liquid diet, tolerating so far. Also seen by GI. We continue with antibiotics as mentioned above. Leukocytosis resolved. Clinically no acute distress. Discussed with Dr. Hodge. Continue to monitor patient clinically and follow up with the labs. Please refer to chart for more information. Dictated by Christian Brewer PA-C (Al) Nancy Hodge MD /MODL /[id number]
--- NOTE | 2019-12-31 11:12 | NUR ---
PATIENT ASSISTED WITH SHOWER, LINENS CHANGED. BACK IN BED WITH CALL LIGHT AT REACH.
[2019-12-31] MEDS: CEFEPIME 1GM/NS 0.9% 50 ML 50 ML IV SCH ×2 (12:25→20:00)
[2019-12-31] MEDS: METRONIDAZOLE 500MG/NS 100ML 100 ML IV SCH ×2 (13:06→21:00)
--- NOTE | 2019-12-31 13:40 | NUR ---
Pt. expressed no spiritual or emotional concerns at this time. Property Field Inspector provided hospitality and information on how to reach books binder, if needed. No need to follow at this time. TRINI THAO Property Field Inspector Spiritual Care Department O: [phone]
[2019-12-31] MEDS ORDERED: CEFEPIME HCL 1 GM VIAL IV SCH (14:00)
--- NOTE | 2019-12-31 15:26 | NUR ---
PATIENT AMBULATED TO THE RESTROOM AND BACK TO BED. CALL LIGHT AT REACH.
[2019-12-31] MEDS: ENOXAPARIN SOD INJ 40 MG/0.4 ML SYR SC SCH (17:21)
--- NOTE | 2019-12-31 19:24 | Progress Note ---
DATE: 12/31/2019 SUBJECTIVE: The patient denies chest pain or shortness of breath. OBJECTIVE: VITAL SIGNS: Temperature 99.2 degrees, pulse 85, respiratory rate 20, blood pressure 138/54, and oxygen saturation 99% on room air. GENERAL: Awake, alert, in no acute distress. LUNGS: Clear to auscultation bilaterally. No wheezes or crackles. CARDIOVASCULAR: Normal rate. Regular rhythm. No murmur. Normal S1, S2. Soft, mildly tender to palpation. Nondistended. EXTREMITIES: No edema. CARDIAC MEDICATIONS: 1. Metoprolol succinate 25 mg p.o. daily. 2. Aspirin 81 mg p.o. daily. LABORATORY DATA: WBC 10.64, hemoglobin 12.2, hematocrit 38.1, and platelets 248. Sodium 140, potassium 3.7, chloride 107, CO2 22, BUN 14, and creatinine 0.73. Telemetry was personally reviewed and interpreted revealing normal sinus rhythm. IMPRESSION: 1. Chest pain. 2. Acute diverticulitis with intraabdominal abscess. 3. Hypertension. RECOMMENDATIONS: No evidence of myocardial infarction on serial cardiac biomarkers. Echocardiogram demonstrated preserved LVEF. Given the patient's diverticulitis, recommend medical management at this time including aspirin. Continue current cardiac medications. Recommend ischemic evaluation as an outpatient once the diverticulitis has resolved. If the patient requires surgical intervention during this admission, we will plan to proceed with chemical stress test prior to surgery. We will continue to follow. Leigh Ann Wolfe MD ABS/MODL /[id number]
[2020-01-01] VITALS (7 sets, daily range): BP systolic 112–149; BP diastolic 56–85
--- NOTE | 2020-01-01 02:30 | Progress Note ---
DATE: 12/31/2019 Medicine Progress Note SUBJECTIVE: The patient is doing much better today. Her abdominal pain is much improved. She is on a clear liquid diet as per General Surgery. PHYSICAL EXAMINATION: VITAL SIGNS: Temperature 98, pulse 88, respiratory rate is 20, blood pressure 132/60, and pulse ox 93% on room air. GENERAL: In no acute distress. Alert and oriented x3. Cooperative on exam. HEENT: Head normocephalic and atraumatic. Eyes; pupils are equal, round, and reactive to light bilaterally. Extraocular movements are intact bilaterally. Throat; no evidence of erythema or exudates in the posterior pharynx. Has poor dentition. NECK: Supple good range of motion. PULMONARY: Clear to auscultation bilaterally. No wheezing, no rales, no rhonchi appreciated. CARDIOVASCULAR: Positive S1 and S2. No murmurs, rubs, or gallops appreciated. ABDOMEN: Soft, nondistended, and nontender to palpation. Bowel sounds present. LABORATORY DATA: White count 10.6, hemoglobin 12, hematocrit 38, and platelets of 248. Chemistry reviewed and is stable. MICROBIOLOGY: Blood and throat cultures were negative. IMPRESSION: 1. Acute diverticulitis with concerns of left lower quadrant abdominal pain. 2. Chest pain, atypical in nature. 3. Hypotension. PLAN: At this time, we will continue with conservative treatment with IV antibiotics. She is on clear liquid diet, advanced per General Surgery. General Surgery and EEG are following. Repeat labs in the morning. Continue with conservative treatment for now and monitor closely. MD AIDA Murillo/RITU /[id number]
[2020-01-01] MEDS ORDERED: IRON SUCROSE 100 MG in SODIUM CHLORIDE 0.9% 100 ML 100 ML IV SCH ×3 (05:00→09:00)
[2020-01-01 05:18] LABS: BASOPHILS % 0.2 % (0.0-1.0); EOSINOPHILS # (AUTO) 0.2 (0.0-0.4); HEMATOCRIT 34.9 % (34.2-44.1); HEMOGLOBIN 10.9 g/dL (12.0-16.0); LYMPHOCYTES # (AUTO) 1.3 (1.0-3.2); LYMPHOCYTES % 16.2 % (18.0-39.1); MEAN CORPUSCULAR HEMOGLOBIN 26.3 pg (28-32); MEAN CORPUSCULAR HGB CONC 31.2 g/dL (31-35); MEAN CORPUSCULAR VOLUME 84.3 fL (81-99); MONOCYTES # (AUTO) 0.8 (0.2-0.8); MONOCYTES % 10.1 % (4.4-11.3); NEUTROPHILS # (AUTO) 5.7 (2.1-6.9); NEUTROPHILS % 71.1 % (38.7-80.0); PLATELET COUNT 220 x10e3/uL (140-360); RED BLOOD COUNT 4.14 x10e6/uL (3.6-5.1); RED CELL DISTRIBUTION WIDTH 12.3 % (11.7-14.4)
[2020-01-01 05:30] LABS: ANION GAP 9.7 mmol/L (8-16); BLOOD UREA NITROGEN 7 mg/dL (7-26); BUN/CREATININE RATIO 11 (6-25); CALCIUM 8.6 mg/dL (8.4-10.2); CARBON DIOXIDE 28 mmol/L (22-29); CHLORIDE 106 mmol/L (98-107); CREATININE, SERUM 0.65 mg/dL (0.57-1.11); EST GLOMERULAR FILTRATION RATE > 60 ML/MIN (60-); GLUCOSE 89 mg/dL (74-118); POTASSIUM 3.7 mmol/L (3.5-5.1); SODIUM 140 mmol/L (136-145)
[2020-01-01] MEDS: CEFEPIME 1GM/NS 0.9% 50 ML 50 ML IV SCH ×3 (05:40→20:11)
[2020-01-01] MEDS: SODIUM CHLORIDE 0.9% 1000ML 1,000 ML IV SCH (05:40)
[2020-01-01] MEDS: METRONIDAZOLE 500MG/NS 100ML 100 ML IV SCH ×3 (05:42→21:00)
--- NOTE | 2020-01-01 07:15 | NUR ---
PATIENT IN BED WITH HEAD OF BED ELEVATED TALKING ON THE PHONE, NO COMPLAIN VOICED. BED IN LOWER POSITION, CALL LIGHT AT REACH.
[2020-01-01] MEDS: ASPIRIN 81 MG ENTERIC COATED PO SCH (09:02)
[2020-01-01] MEDS: METOPROLOL SUCCINATE 25 MG TAB XL PO SCH (09:03)
--- NOTE | 2020-01-01 10:51 | Progress Note ---
DATE: SUBJECTIVE: The patient is comfortable in bed, very happy with the progress. REVIEW OF SYSTEMS: Remains with diarrhea. No nausea. No vomiting. She started eating and tolerating okay. Ambulates without problem. No fever. No chills. No headache. No dysuria. No rash. OBJECTIVE: VITAL SIGNS: Temperature 98, pulse 82, respirations 20, and blood pressure 142/73. GENERAL: Alert and oriented, no acute distress. CV: S1-S2. CHEST: Equal expansion, clear to auscultation. No acute distress. ABDOMEN: Obese soft nontender. HEENT: Moist. No pallor. No JVD. EXTREMITIES: Weak, but moves all, no acute finding. MEDICATIONS: Medication list reviewed as far as Infectious Disease point of view, the patient is on cefepime and Flagyl. LABORATORY STUDIES: White blood cells 8.01 improved from 12.09, hemoglobin 10.9, platelets 220. Sodium 140, potassium 3.7 creatinine 0.65. SEROLOGY: COVID-19 negative on 12/29/2019. Influenza type A and B antigen and group A strep screen negative from 12/29/2019. MICROBIOLOGY: Blood culture and throat culture on 12/29/2019, negative. RADIOLOGY STUDIES: No new radiology studies. Please refer to previous note for CT results of abdomen and pelvis. ASSESSMENT AND PLAN: 1. Acute sigmoid diverticulitis. 2. Small intramural abscesses. 3. Sliding gastric hiatal hernia. 4. Herniated stomach. 5. Diarrhea, no significant change today. 6. Morbid obesity. 7. Hypertension. The patient seen by General Surgery today. We recommended to advance diet and continue with IV antibiotics. The patient is seen by GI. Jason given for diarrhea as p.r.n. Currently, patient on cefepime and Flagyl. Continue with antibiotics. Further management of this patient is based on daily findings on laboratory and physical exam. Please refer to chart for more information. Discussed with Dr. Hodge in details. Dictated by Christian Brewer PA-C (Al) Nancy Hodge MD /MODL /[id number]
--- NOTE | 2020-01-01 10:58 | NUR ---
IV IRON INFUSION IN PROGRESS. PATIENT IN BED WITH CALL LIGHT AT REACH.
--- NOTE | 2020-01-01 11:51 | Progress Note ---
DATE: 01/01/2020 Cardiology Progress Note SUBJECTIVE: The patient denies chest pain or shortness of breath. She reports she was not able to tolerate her diet this morning. OBJECTIVE: VITAL SIGNS: Temperature 98 degrees, pulse 82, respiratory rate 20, blood pressure 142/73, oxygen saturation 94% on room air. GENERAL: Awake, alert, in no acute distress. LUNGS: Clear to auscultation bilaterally. No wheezes or crackles. CARDIOVASCULAR: Normal rate, regular rhythm. No murmur. Normal S1, S2. ABDOMEN: Soft, mildly tender to palpation. Nondistended. EXTREMITIES: No edema. CARDIAC MEDICATIONS: Metoprolol succinate 25 mg p.o. daily, aspirin 81 mg p.o. daily, and enoxaparin 40 mg subcu daily. LABORATORY DATA: WBC 8.01, hemoglobin 10.9, hematocrit 34.9, platelets 220. Sodium 140, potassium 3.7, chloride 106, CO2 of 28, BUN 7, and creatinine 0.65. TELEMETRY: Personally reviewed and interpreted, revealing normal sinus rhythm. IMPRESSION: 1. Chest pain. 2. Acute diverticulitis with intraabdominal abscess. 3. Hypertension. RECOMMENDATIONS: No evidence of myocardial infarction on serial cardiac biomarkers. Echocardiogram demonstrated preserved LVEF. Given the patient's diverticulitis, recommend medical management at this time including aspirin, increase metoprolol succinate as the patient's blood pressure is above goal. Ischemic evaluation as an outpatient once diverticulitis has resolved. The patient requires surgical intervention during this admission. We will plan to proceed with chemical stress test prior to surgery. Thank you for this consult. We will continue to follow. Leigh Ann Wolfe MD ABS/MODL /[id number]
--- NOTE | 2020-01-01 15:18 | NUR ---
MD IN TO SEE PATIENT, NO NEW ORDER RECEIVED.
[2020-01-01] MEDS: ENOXAPARIN SOD INJ 40 MG/0.4 ML SYR SC SCH (17:21)
--- NOTE | 2020-01-01 19:05 | NUR ---
Bedside report completed with morning nurse. Pt alert and oriented to name, lying in bed HOB 45 degrees. Denies pain at this time. Call light within reach. Bed low and locked.
--- NOTE | 2020-01-01 22:13 | Progress Note ---
DATE: 01/01/2020 Medical Progress Note SUBJECTIVE: The patient is feeling much better today. Her abdominal pain has improved. She is on a regular diet now. PHYSICAL EXAMINATION: VITAL SIGNS: Temperature 99.2, pulse 77, respiratory rate is 20, blood pressure 112/69, and pulse ox 95% on room air. GENERAL: Not in acute distress. Alert and oriented x3. Cooperative on examination. HEENT: Head; normocephalic, atraumatic. PULMONARY: Clear to auscultation bilaterally. No wheezing, no rales, no rhonchi, no crackles appreciated. CARDIOVASCULAR: Positive S1 and S2. No murmurs, rubs, or gallops appreciated. ABDOMEN: Soft, nondistended, and nontender to palpation. Bowel sounds present. MUSCULOSKELETAL: Strength is 5/5 throughout. NEUROLOGIC: Alert and oriented x3. SKIN: Intact. Warm to touch. Good cap refill. PSYCHIATRIC: Normal affect and mood. EXTREMITIES: No edema. Good range of motion throughout. LABORATORY DATA: CBC stable. White count is 8. Chemistries reviewed and stable. MICROBIOLOGY: Blood cultures, no growth. Stool cultures were negative. IMAGING STUDIES: Nothing new. IMPRESSION: 1. Acute diverticulitis with underlying left lower quadrant abdominal pain. 2. Atypical chest pain. 3. Hypotension - resolved. 4. Decreased oral intake. PLAN: At this time, her diet has been advanced to regular, which she is tolerating well. She has very little pain in the left lower quadrant. Encouraged ambulation. General Surgery and GI recommends conservative treatment at this time, but she does need a colonoscopy as an outpatient several weeks from discharge. Her white count is normal. Her labs are stable. Her vital signs are stable. Once the patient has been cleared for discharge by the consultants, we will discharge to home. MD AIDA Murillo/RITU /[id number]
[2020-01-02] VITALS (9 sets, daily range): BP systolic 108–157; BP diastolic 58–87
[2020-01-02] MEDS: SODIUM CHLORIDE 0.9% 1000ML 1,000 ML IV SCH ×3 (01:30→18:50)
[2020-01-02] MEDS: ACETAMINOPHEN 325 MG TAB PO PRN ×2 (01:35→20:10)
[2020-01-02] MEDS: CEFEPIME 1GM/NS 0.9% 50 ML 50 ML IV SCH ×3 (04:11→20:09)
[2020-01-02] MEDS: ONDANSETRON HCL INJ 2MG/ML 2ML 2 MG/ML VIAL IV PRN ×2 (04:16→20:10)
[2020-01-02] MEDS: METRONIDAZOLE 500MG/NS 100ML 100 ML IV SCH ×3 (05:00→20:09)
--- NOTE | 2020-01-02 05:00 | NUR ---
IV infiltrated, redness and edema noted. IV removed. Ice pack applied. x3 attempt for IV placement, unable to place new IV.
[2020-01-02 05:32] LABS: BASOPHILS % 0.4 % (0.0-1.0); EOSINOPHILS # (AUTO) 0.2 (0.0-0.4); EOSINOPHILS % 2.7 % (0.0-6.0); HEMATOCRIT 37.5 % (34.2-44.1); HEMOGLOBIN 12.2 g/dL (12.0-16.0); LYMPHOCYTES # (AUTO) 1.1 (1.0-3.2); LYMPHOCYTES % 15.2 % (18.0-39.1); MEAN CORPUSCULAR HEMOGLOBIN 26.6 pg (28-32); MEAN CORPUSCULAR HGB CONC 32.5 g/dL (31-35); MEAN CORPUSCULAR VOLUME 81.7 fL (81-99); MONOCYTES # (AUTO) 0.6 (0.2-0.8); MONOCYTES % 8.6 % (4.4-11.3); NEUTROPHILS # (AUTO) 5.3 (2.1-6.9); NEUTROPHILS % 72.7 % (38.7-80.0); PLATELET COUNT 281 x10e3/uL (140-360); RED BLOOD COUNT 4.59 x10e6/uL (3.6-5.1); RED CELL DISTRIBUTION WIDTH 12.3 % (11.7-14.4)
[2020-01-02 05:54] LABS: ANION GAP 12.4 mmol/L (8-16); BLOOD UREA NITROGEN 6 mg/dL (7-26); BUN/CREATININE RATIO 9 (6-25); CALCIUM 8.8 mg/dL (8.4-10.2); CARBON DIOXIDE 28 mmol/L (22-29); CHLORIDE 104 mmol/L (98-107); CREATININE, SERUM 0.68 mg/dL (0.57-1.11); EST GLOMERULAR FILTRATION RATE > 60 ML/MIN (60-); GLUCOSE 94 mg/dL (74-118); POTASSIUM 3.4 mmol/L (3.5-5.1); SODIUM 141 mmol/L (136-145)
--- NOTE | 2020-01-02 07:00 | NUR ---
BEDSIDE SHIFT REPORT FROM PHOTOGRAPHIC PLATEMAKER RN. PT DENIES NEEDS AT THIS TIME.
--- NOTE | 2020-01-02 07:15 | NUR ---
Consent signed for ordered midline per Dr. Watson.
[2020-01-02] MEDS: METOPROLOL SUCCINATE 50 MG TAB XL PO SCH (09:28)
[2020-01-02] MEDS: ASPIRIN 81 MG ENTERIC COATED PO SCH (09:29)
--- NOTE | 2020-01-02 11:30 | Progress Note ---
DATE: SUBJECTIVE: Ms. Celsa Jackson is a 59-year-old pleasant female, admitted with acute sigmoid diverticulitis and multiple abscesses. REVIEW OF SYSTEMS: Wants to go home, still with left lower quadrant abdominal discomfort, however, tolerates oral intake. Stools still loose. No nausea. No vomiting. No fever. No chills. No chest pain. No shortness of breath. No rash. No dysuria. No headache. OBJECTIVE: VITAL SIGNS: Temperature is 97.5, pulse is 72, respirations 18, and blood pressure 146/84. GENERAL: Alert and oriented. Moves around pretty comfortably. Morbidly obese. CV: S1 and S2. CHEST: Equal expansion, clear to auscultation. No acute distress. ABDOMEN: Soft and nontender. No distention. Still with the left lower quadrant discomfort on palpation. HEENT: Moist. No pallor. No JVD. EXTREMITIES: Moves all. No edema. MEDICATIONS: Medication list reviewed. As far as Infectious Disease point of view, the patient is on cefepime and Flagyl. LABORATORY STUDIES: White blood cells 7.32, hemoglobin 12.2, and platelets 281. Sodium 141, potassium 3.4, creatinine 0.68. SEROLOGY: COVID-19 negative on 12/29/2019. Influenza A and B antigen and group A strep screen negative. MICROBIOLOGY: Throat culture and blood culture negative. RADIOLOGY STUDIES: No new radiology studies available. ASSESSMENT AND PLAN: 1. Acute sigmoid diverticulitis. 2. Small intramural abscesses. 3. Sliding gastric hiatal hernia. 4. Hernia to stomach. 5. Diarrhea. 6. Morbid obesity. 7. Hypertension. 8. Poor oral intake. 9. Atypical chest pain. Continue with IV antibiotics and monitor the patient clinically. Follow with the labs. Encourage oral intake, monitor bowel movement. Continue with PT/OT. Pain management also per others. Please refer to chart for more information. Discussed with Dr. Hodge in detail. Dictated by Christian Brewer PA-C (Al) Nancy Hodge MD /MODL /[id number]
[2020-01-02] MEDS ORDERED: MELATONIN 5 MG TABLET PO PRN (13:30)
[2020-01-02] MEDS: ENOXAPARIN SOD INJ 40 MG/0.4 ML SYR SC SCH (17:13)
--- NOTE | 2020-01-02 19:17 | NUR ---
[facility], PATIENT SEEN SITTING IN CHAIR LOOKING OUT WINDOW, ALERT, ORIENTED x 4, ABLE TO MAKE NEEDS KNOWN, SKIN WARM DRY, IV PATENT, DENIES CHEST PAIN OR SOB, TOLERATING LIQUID DIET, POSSIBLE DISCHARGE TOMORROW, WILL CONTINUE IV HYDRATION, IV ABT ORDERED CALL LIGHT WITHIN REACH
--- NOTE | 2020-01-02 19:27 | Progress Note ---
DATE: 01/02/2020 Cardiology Progress Note SUBJECTIVE: The patient denies chest pain or shortness of breath. Her ability to tolerate p.o. intake has improved. OBJECTIVE: VITAL SIGNS: Temperature 97.1 degrees, pulse 78, respiratory rate 19, blood pressure 108/70, oxygen saturation 96% on room air. GENERAL: Awake, alert, in no acute distress. LUNGS: Clear to auscultation bilaterally. No wheezes or crackles. CARDIOVASCULAR: Normal rate and regular rhythm. No murmur. Normal S1 and S2. ABDOMEN: Soft, nontender, nondistended. EXTREMITIES: No edema. CARDIAC MEDICATIONS: Aspirin 81 mg p.o. daily, metoprolol succinate 50 mg p.o. daily. LABORATORY DATA: WBC 7.32, hemoglobin 12.2, hematocrit 37.5, and platelets 281. Sodium 141, potassium 3.4, chloride 104, CO2 of 28, BUN 6, creatinine 0.68. TELEMETRY: Personally reviewed, interpreted, revealing normal sinus rhythm. IMPRESSION: 1. Chest pain. 2. Acute diverticulitis with intra-abdominal abscess. 3. Hypertension. RECOMMENDATIONS: No evidence of myocardial infarction on serial cardiac biomarkers. Echocardiogram demonstrated preserved LVEF. Given the patient's diverticulitis, recommend medical management at this time including aspirin and metoprolol. Ischemic evaluation as an outpatient once diverticulitis has resolved. Thank you for this consult. We will continue to follow. Leigh Ann Wolfe MD ABS/MODL /[id number]
[2020-01-02] MEDS ORDERED: POTASSIUM CHLORIDE 20 MEQ TAB CR PO STA (22:15)
[2020-01-03] VITALS: BP 156/79
[2020-01-03 00:47] VITALS: BP 156/79
--- NOTE | 2020-01-03 00:47 | Progress Note ---
DATE: 01/02/2020 Medicine Progress Note SUBJECTIVE: The patient's diet has been advanced to regular. She is still complaining of some abdominal pain. No overnight events. PHYSICAL EXAMINATION: VITAL SIGNS: Temperature is 97.8, pulse 79, respiratory rate is 18, blood pressure 157/87, pulse ox 99% on room air. GENERAL: No acute distress alert and oriented x3. Cooperative on examination. HEENT: Head normocephalic and atraumatic. Eyes; pupils are equal, round, and reactive to light bilaterally. Extraocular movements are intact bilaterally. PULMONARY: Clear to auscultation bilaterally. No wheezing or rales. No rhonchi appreciated. CARDIOVASCULAR: Positive S1 and S2. No murmurs, rubs, or gallops appreciated. ABDOMEN: Soft, nondistended, and nontender to palpation. Bowel sounds present. MUSCULOSKELETAL: Strength is 5/5 throughout. No evidence of any muscle deficits on examination. No weakness appreciated. NEUROLOGIC: Cranial nerves II through XII grossly intact. No evidence of any neurological deficits on exam. SKIN: Intact. Warm to touch. Good cap refill. PSYCHIATRIC: Normal affect and mood. EXTREMITIES: No edema. Good range of motion throughout. LABORATORY DATA: Labs show white count 7.3, hemoglobin 12, hematocrit is 37, and platelets of 281. Chemistries reviewed, shows sodium 141, potassium 3.4, chloride 104, bicarb 20, anion gap of 12, BUN 6, creatinine 0.68, calcium is 8.8. IMPRESSION: 1. Acute diverticulitis with underlying left lower quadrant abdominal pain, improving. 2. Atypical chest. 3. Hypotension, resolved. 4. Decreased oral intake. PLAN: At this time, she is tolerating regular diet, but still complaining of some left lower quadrant abdominal pain. I discussed with General Surgery. He states the patient is doing well. She has no white count, no fever. No need for any repeat imaging studies. Discussed with ID, who is determining either the patient goes home on oral or IV antibiotics. Get a.m. labs. Replace potassium. Discussed plan of care with nursing staff and consultants. MD AIDA Murillo/RITU /[id number]
[2020-01-03 00:48] VITALS: BP 156/79
[2020-01-03] MEDS: CEFEPIME 1GM/NS 0.9% 50 ML 50 ML IV SCH ×2 (03:06→11:21)
[2020-01-03] MEDS: METRONIDAZOLE 500MG/NS 100ML 100 ML IV SCH ×2 (04:05→13:32)
[2020-01-03 04:10] VITALS: BP 132/56
[2020-01-03 05:50] LABS: BASOPHILS % 0.4 % (0.0-1.0); EOSINOPHILS # (AUTO) 0.3 (0.0-0.4); EOSINOPHILS % 5.4 % (0.0-6.0); HEMATOCRIT 35.6 % (34.2-44.1); HEMOGLOBIN 11.2 g/dL (12.0-16.0); LYMPHOCYTES # (AUTO) 1.4 (1.0-3.2); MEAN CORPUSCULAR HEMOGLOBIN 26.1 pg (28-32); MEAN CORPUSCULAR HGB CONC 31.5 g/dL (31-35); MONOCYTES # (AUTO) 0.5 (0.2-0.8); MONOCYTES % 10.4 % (4.4-11.3); NEUTROPHILS # (AUTO) 2.8 (2.1-6.9); NEUTROPHILS % 55.4 % (38.7-80.0); PLATELET COUNT 246 x10e3/uL (140-360); RED BLOOD COUNT 4.29 x10e6/uL (3.6-5.1); RED CELL DISTRIBUTION WIDTH 12.4 % (11.7-14.4)
[2020-01-03 06:05] LABS: ANION GAP 8.7 mmol/L (8-16); BLOOD UREA NITROGEN 9 mg/dL (7-26); BUN/CREATININE RATIO 13 (6-25); CALCIUM 8.8 mg/dL (8.4-10.2); CARBON DIOXIDE 29 mmol/L (22-29); CHLORIDE 107 mmol/L (98-107); CREATININE, SERUM 0.68 mg/dL (0.57-1.11); EST GLOMERULAR FILTRATION RATE > 60 ML/MIN (60-); GLUCOSE 82 mg/dL (74-118); POTASSIUM 3.7 mmol/L (3.5-5.1); SODIUM 141 mmol/L (136-145)
[2020-01-03] MEDS: ACETAMINOPHEN 325 MG TAB PO PRN (06:56)
--- NOTE | 2020-01-03 07:00 | NUR ---
BEDSIDE SHIFT REPORT FROM ASSOCIATE EDITOR RN. PT DENIES NEEDS AT THIS TIME.
--- NOTE | 2020-01-03 07:10 | NUR ---
BSSR GIVEN TO DAYSHIFT RN AT BEDSIDE, PATIENT PARTICIPATED IN REPORT, PATIENT AOX4, PATIENT DENIES CHEST/ABDOMINAL PAIN, REPORTS HEADACHE PAIN /10, PRN TYLENOL PO GIVEN FOR MCCAULEY, SWALLOWED BY PT W/O DIFFULTY, NO DISTRESS NOTED, SKIN WARM DRY, CALL LIGHT WITHIN REACH, POSSIBLE DISCHARGE HOME TODAY
[2020-01-03] MEDS: SODIUM CHLORIDE 0.9% 1000ML 1,000 ML IV SCH (08:10)
[2020-01-03 08:27] VITALS: BP 148/68
[2020-01-03] MEDS: ASPIRIN 81 MG ENTERIC COATED PO SCH (08:35)
[2020-01-03] MEDS: METOPROLOL SUCCINATE 50 MG TAB XL PO SCH (08:36)
[2020-01-03 09:08] VITALS: BP 148/68
--- NOTE | 2020-01-03 11:34 | Progress Note ---
DATE: 01/03/2020 Cardiology Progress Note SUBJECTIVE: The patient denies chest pain or shortness of breath. She reports that she may go home today. OBJECTIVE: VITAL SIGNS: Temperature 97 degrees, pulse 64, respiratory rate 19, blood pressure 148/68, and oxygen saturation 95% on room air. GENERAL: Awake, alert, and in no acute distress. LUNGS: Clear to auscultation bilaterally. No wheezes or crackles. CARDIOVASCULAR: Normal rate. Regular rhythm. No murmur. Normal S1 and S2. ABDOMEN: Soft, nontender, and nondistended. EXTREMITIES: No edema. CARDIAC MEDICATIONS: Metoprolol succinate 50 mg p.o. daily and aspirin 81 mg p.o. daily. LABORATORY DATA: WBC 5, hemoglobin 11.2, and hematocrit 35.6. Sodium 141, potassium 3.7, chloride 107, CO2 29, BUN 9, and creatinine 0.68. Telemetry was personally reviewed and interpreted, revealing normal sinus rhythm. IMPRESSION: 1. Chest pain. 2. Acute diverticulitis with intra-abdominal abscess. 3. Hypertension. RECOMMENDATIONS: No evidence of myocardial infarction on serial cardiac biomarkers. Echocardiogram demonstrated normal LVEF. Given the patient's diverticulitis, recommended medical management at this time including aspirin and metoprolol. Ischemic evaluation as an outpatient once diverticulitis has resolved. Please have the patient follow up with us in the office in 2 weeks. Thank you for this consult. We will continue to follow. Leigh Ann Wolfe MD ABS/MODL /[id number]
--- NOTE | 2020-01-03 11:54 | Progress Note ---
DATE: SUBJECTIVE: Ms. Jackson is a pleasant 59-year-old [place] lady admitted with acute diverticulitis and multiple intraluminal abscesses, currently comfortable, seated on a couch and wants to go home, very pleasant. REVIEW OF SYSTEMS: No nausea, no vomiting, no fever, no chills. No chest pain. No shortness of breath. No headache. No dysuria. No polyuria. Abdominal pain has improved significantly per my discussion with the patient. PHYSICAL EXAMINATION: VITAL SIGNS: Temperature 97, pulse 64, respiration 19, blood pressure 148/68. GENERAL: Alert and oriented, no acute distress. CV: S1, S2. CHEST: Equal expansion, clear to auscultation. ABDOMEN: Soft and nontender. No distention with some discomfort in left lower quadrant. EXTREMITIES: Moves all. No edema. MEDICATIONS: Medication list reviewed as far as Infectious Disease point of view, the patient is on cefepime and Flagyl. LABORATORY STUDIES: White blood cells 5, hemoglobin 11.2, platelet 246. Sodium 141, potassium 3.7, creatinine 0.68. Serology; no new serology available. COVID-19 negative on 12/28. Influenza A and B antigen, group A strep screen negative on 12/28. MICROBIOLOGY: No new microbiology studies available. RADIOLOGY STUDIES: No new radiology studies available. ASSESSMENT AND PLAN: 1. Acute sigmoid diverticulitis, clinically improved. 2. Small intramural abscesses. 3. Sliding gastric hiatal hernia. 4. Herniated stomach. 5. Morbid obesity. 6. Hypertension. 7. Diarrhea, improved. Continue with cefepime and Flagyl at this point. The patient is seen by General Surgery and seems like cleared by General Surgery for discharge and follow up with me in 2 weeks. The patient can be discharged with Cipro and Flagyl for 2 weeks and follow up with Dr. Hodge in [address] Hodge in details. Please refer to chart for more information. Thank you for this dictation. Dictated by Christian Brewer PA-C (Al) Nancy Hodge MD /MODL /[id number]
--- NOTE | 2020-01-03 23:45 | Discharge Summary ---
FINAL DISCHARGE DIAGNOSES: 1. Acute diverticulitis with underlying micro-abscesses seen on imaging studies-resolved. 2. Atypical chest pain. 3. Hypotension-resolved. 4. Decreased oral intake-resolved. CONSULTANTS: 1. General surgery. 2. ID. 3. GI. 4. Cardiology. PHYSICAL EXAMINATION: VITAL SIGNS: Temperature is 97, pulse 64, respiratory rate is 19, blood pressure 140/68, and pulse ox 95% on room air. LABORATORY DATA: Show white count is 5, hemoglobin 11.2, hematocrit 35.6, platelets of 246. Chemistry; sodium 141, potassium 3.7, chloride 107, bicarb 20, anion gap is 8.7, BUN is 9, creatinine 0.68, glucose is 82, calcium is 8.8. Iron saturation is 5%. Total bilirubin is 0.4, AST 18, ALT 20, alkaline phosphatase 118. CK 21, troponin 0.026. Albumin 2.8. LDL was 89. Vitamin B12 was 778. Lipase level 25. Urinalysis negative. SEROLOGIES: Coronavirus PCR negative. Flu negative. Group A strep negative. MICROBIOLOGY: Blood cultures, no growth to-date x5 days x2. Throat cultures were also found to be negative. IMAGING STUDIES: Chest x-ray showed patchy left retrocardiac opacity, which may represent atelectasis or infection in the appropriate clinical setting. CT abdomen and pelvis shows acute sigmoid diverticulitis with small infrarenal abscesses, largest measuring at 2.1 cm. There is also 6 cm focus of fluid in the left lower lobe, very likely physiological. I discussed this with the patient to follow up with [facility] as an outpatient. She verbalized understanding. She also has a large sliding gastric hiatal hernia as well. The patient is advised to follow up with Surgery and GI as an outpatient. HOSPITAL COURSE: This is a 59-year-old female, who comes into the ED with complaints of left lower quadrant abdominal pain, ongoing for the last 10-14 days at home. She also reported some underlying chest pain, in which Cardiology was consulted. Cardiac enzymes were negative. EKG showed no acute findings. No further workup needed by Cardiology. It is felt to be atypical in nature. As for her abdominal pain, imaging study shows significant inflammation as well as micro-abscesses seen in the colon on CT abdomen and pelvis. While here, the patient maintained on broad-spectrum IV antibiotic therapy. All cultures were found to be negative. General Surgery and ID were involved as well as GI. The patient improved throughout the hospital course. White count was normal at 5 upon discharge and she has been afebrile for several days. Her abdominal pain resolved prior to being discharged. She was started on a clear liquid diet, advanced to solid food. General Surgery and GI recommended conservative treatment for now. The areas of the abscesses are too small for IR to drain according to General Surgery and recommends no further workup at this time. She has been cleared for discharge by General surgery, ID, and GI. The patient was discharged on oral Cipro, Flagyl orally that was prescribed by ID. No further workup was needed by all consultants. She was cleared for discharge by all consultants. On the day of discharge, vital signs were stable, labs were reviewed and stable. The patient is seen and evaluated, and examined thoroughly on the day of discharge. No other complaints. The patient verbalized understanding and agrees to plan of care to follow up as an outpatient with the PCP in 1 week, general surgery and ID including GI in the next 2 weeks time. MEDICATIONS: See med reconciliation form. DISPOSITION: Home. CONDITION: Stable. DIET: Heart healthy. In the event of any worsening symptoms, the patient was advised to come back to the ED for further evaluation. Discharge summary took greater than 35 minutes. Once again, the patient was educated in the event she gets any worsening symptoms, has fever or any complaints of abdominal pain, she is to come back to the hospital. PICC line was removed prior to being discharged home and she was on discharge on oral antibiotics. MD AIDA Murillo/RITU /[id number]
== END 2020-01-03 15:56 | disposition home or self-care (01) | DRG 392 ==
LOC: ER 16:09 → ERHOLD 17:41 → MED/SURG2 12-30 00:47 → OBSVTOIN 12-30 08:58
PROVIDERS: ADMIT Internal Medicine; ATTEND Internal Medicine
PROC: 05HY33Z Insertion of Infusion Device into Upper Vein, Percutaneous Approach (ICD-10-PCS; principal; 2020-01-02)
DX: K57.20 Diverticulitis of large intestine with perforation and abscess without bleeding (principal); R07.89 Other chest pain; I95.9 Hypotension, unspecified; I10 Essential (primary) hypertension; R19.7 Diarrhea, unspecified; K44.9 Diaphragmatic hernia without obstruction or gangrene; Z68.38 Body mass index [BMI] 38.0-38.9, adult; E66.01 Morbid (severe) obesity due to excess calories
CPT/HCPCS: 36415; 71045; 74177; 80048; 80053; 80061; 81001; 82550; 82553; 82607; 82728; 82746; 83518; 83540; 83605; 83690; 84466; 84484; 85025; 85045; 87040; 87070; 87400; 87635; 93005; 93306; 96361; 99284; G0378; J0692; J1650; J1756; J2270; J2405; J2543; J7030; J7040; Q9967